=== PATIENT | female | born 1950 | race African-American/Black ===

== ENCOUNTER 2017-09-25 09:51 | Inpatient (IN) | payer OTHER ==
[2017-09-25 10:15] VITALS: BMI 21.7
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
[2017-09-25] MEDS ORDERED: P-EPHED 60MG/TRIPROLIDI 2.5MG TABLET PO PRN (13:00)
[2017-09-25] MEDS ORDERED: MAGNESIUM CITRATE 300 ML BOTTLE PO PRN (13:00)
[2017-09-25] MEDS ORDERED: chlordiazePOXIDE HCL 25 MG CAPSULE PO PRN (13:00)
[2017-09-25] MEDS ORDERED: LOPERAMIDE HCL 2 MG CAPSULE PO PRN (13:00)
[2017-09-25] MEDS ORDERED: MAGNESIUM HYDROX 2400MG/30ML ORAL SUSPENSION 30 ML CUP PO PRN (13:00)
[2017-09-25] MEDS ORDERED: IBUPROFEN 400 MG TABLET (FP) PO PRN (13:00)
[2017-09-25] MEDS ORDERED: MENTHOL/PHENOL 1 EACH UD MM PRN (13:00)
[2017-09-25] MEDS ORDERED: MAG HYDROX/AL HYDROX/SIMETH 30 ML UNIT-DOSE CUP PO PRN (13:00)
[2017-09-25] MEDS ORDERED: chlordiazePOXIDE HCL 25 MG CAPSULE PO ONE (14:30)
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
[2017-09-25] MEDS: ACETAMINOPHEN 325 MG TABLET (FP) PO PRN (16:24)
[2017-09-25] MEDS: chlordiazePOXIDE HCL 25 MG CAPSULE PO SCH ×2 (16:24→22:18)
[2017-09-25] MEDS: NICOTINE 14 MG/24 HOURS TOPICAL PATCH TD SCH (16:32)
[2017-09-25 16:37] LABS: HEMATOCRIT 41.3 % (32.4-45.2); HEMOGLOBIN 13.3 GM/dL (10.7-15.3); MCH 29.2 pg (25.7-33.7); MCHC 32.1 g/dl (32.0-36.0); MEAN CELL VOLUME 90.8 fl (80-96); MEAN PLT VOLUME 8.6 fl (7.5-11.1); PLATELET COUNT 238 K/MM3 (134-434); RBC 4.55 M/mm3 (3.60-5.2); RDW 13.8 % (11.6-15.6); WHITE BLOOD COUNT 7.7 K/mm3 (4.0-10.0)
[2017-09-25 17:12] LABS: CHLORIDE 103 mmol/L (98-107); POTASSIUM 4.3 mmol/L (3.5-5.1); SODIUM 139 mmol/L (136-145)
[2017-09-25 17:39] LABS: ALBUMIN 3.8 g/dl (3.4-5.0); ALK PHOS 130 U/L (45-117); ANION GAP 8 (8-16); BILIRUBIN,TOTAL 0.5 mg/dL (0.2-1.0); BLOOD UREA NITROGEN 10 mg/dL (7-18); CALCIUM 9.1 mg/dL (8.5-10.1); CO2 28 mmol/L (21-32); CREATININE 0.6 mg/dL (0.55-1.02); GLUCOSE,RANDOM 76 mg/dL (74-106); SGOT/AST 22 U/L (15-37); SGPT/ALT 33 U/L (12-78); TOT PROT 8.3 g/dl (6.4-8.2)
[2017-09-25] MEDS: THIAMINE HCL 100 MG TABLET (FP) PO SCH (22:18)
[2017-09-25] MEDS: guaiFENesin/D-METHORPHAN HB 10 ML UNIT-DOSE CUPS PO PRN (22:18)
[2017-09-25] MEDS: ZOLPIDEM TARTRATE 5 MG TABLET PO PRN (22:18)
[2017-09-26] MEDS: chlordiazePOXIDE HCL 25 MG CAPSULE PO SCH ×4 (05:41→22:27)
[2017-09-26] MEDS: ACETAMINOPHEN 325 MG TABLET (FP) PO PRN ×2 (05:42→17:28)
[2017-09-26] MEDS: PRENATAL VITAMINS W/ FOLIC ACID TABLET (FP) PO SCH (10:01)
[2017-09-26] MEDS: NICOTINE 14 MG/24 HOURS TOPICAL PATCH TD SCH (10:01)
[2017-09-26] MEDS: amLODIPine BESYLATE 10 MG TABLET (FP) PO SCH (10:01)
[2017-09-26] MEDS: NICOTINE POLACRILEX 2 MG GUM BUC PRN ×2 (10:03→18:33)
[2017-09-26] MEDS: guaiFENesin/D-METHORPHAN HB 10 ML UNIT-DOSE CUPS PO PRN (14:45)
--- NOTE | 2017-09-26 15:49 | PN ---
S CIWA - CIWA Score Nausea/Vomitin Muscle Tremors: 3 Anxiety: 4-Mod. Anxious/Guarded Agitation: 4-Moderately Restless Paroxysmal Sweats: 2 Orientation: 0-Oriented Tacttile Disturbances: 0-None Auditory Disturbances: 0-None Visual Disturbances: 0-None Headache: 0-None Present CIWA-Ar Total Score: 16 [facility] Progress Note (SOAP) Subjective: sleep disturbance shakes sweats Objective: 09/26/17 15:50 A & O x 3 Vital Signs Temperature 98.4 F 09/26/17 14:55 Pulse Rate 85 09/26/17 14:55 Respiratory Rate 18 09/26/17 14:55 Blood Pressure 113/66 09/26/17 14:55 O2 Sat by Pulse Oximetry (%) Laboratory Last Values WBC 7.7 K/mm3 (4.0-10.0) 09/25/17 13:00 RBC 4.55 M/mm3 (3.60-5.2) 09/25/17 13:00 Hgb 13.3 GM/dL (10.7-15.3) 09/25/17 13:00 Hct 41.3 % (32.4-45.2) 09/25/17 13:00 MCV 90.8 fl (80-96) 09/25/17 13:00 MCH 29.2 pg (25.7-33.7) 09/25/17 13:00 MCHC 32.1 g/dl (32.0-36.0) 09/25/17 13:00 RDW 13.8 % (11.6-15.6) 09/25/17 13:00 Plt Count 238 K/MM3 (134-434) 09/25/17 13:00 MPV 8.6 fl (7.5-11.1) 09/25/17 13:00 Sodium 139 mmol/L (136-145) 09/25/17 13:00 Potassium 4.3 mmol/L (3.5-5.1) 09/25/17 13:00 Chloride 103 mmol/L (98-107) 09/25/17 13:00 Carbon Dioxide 28 mmol/L (21-32) 09/25/17 13:00 Anion Gap 8 (8-16) 09/25/17 13:00 BUN 10 mg/dL (7-18) 09/25/17 13:00 Creatinine 0.6 mg/dL (0.55-1.02) 09/25/17 13:00 Creat Clearance w eGFR > 60 (>60) 09/25/17 13:00 Random Glucose 76 mg/dL (74-106) 09/25/17 13:00 Calcium 9.1 mg/dL (8.5-10.1) 09/25/17 13:00 Total Bilirubin 0.5 mg/dL (0.2-1.0) 09/25/17 13:00 AST 22 U/L (15-37) 09/25/17 13:00 ALT 33 U/L (12-78) 09/25/17 13:00 Alkaline Phosphatase 130 U/L (45-117) H 09/25/17 13:00 Total Protein 8.3 g/dl (6.4-8.2) H 09/25/17 13:00 Albumin 3.8 g/dl (3.4-5.0) 09/25/17 13:00 RPR Titer Nonreactive (NONREACTIVE) 09/25/17 13:00 HIV 1&2 Antibody Screen Negative 09/25/17 11:45 HIV P24 Antigen Negative 09/25/17 11:45 labs noted Assessment: 09/26/17 15:52 withdrawal sx Plan: continue detox
--- NOTE | 2017-09-26 16:01 | EKG ---
Test Reason : Blood Pressure : / mmHG Vent. Rate : 077 BPM Atrial Rate : 077 BPM P-R Int : 140 ms QRS Dur : 078 ms QT Int : 410 ms P-R-T Axes : 057 032 027 degrees QTc Int : 463 ms NORMAL SINUS RHYTHM NORMAL ECG NO PREVIOUS ECGS AVAILABLE Confirmed by CHARLA PINEDO, GUILHERME ([id number]) on 09/26/2017 4:00:48 PM Referred By: Confirmed By:GUILHERME DUNHAM MD
[2017-09-26] MEDS: ZOLPIDEM TARTRATE 5 MG TABLET PO PRN (22:27)
[2017-09-26] MEDS: THIAMINE HCL 100 MG TABLET (FP) PO SCH (22:27)
[2017-09-27] MEDS: chlordiazePOXIDE HCL 25 MG CAPSULE PO SCH ×2 (06:00→10:38)
[2017-09-27] MEDS: ACETAMINOPHEN 325 MG TABLET (FP) PO PRN (06:01)
[2017-09-27 10:14] VITALS: BP 120/72; PULSE 85; TEMP 95
[2017-09-27] MEDS: amLODIPine BESYLATE 10 MG TABLET (FP) PO SCH (10:39)
[2017-09-27] MEDS: PRENATAL VITAMINS W/ FOLIC ACID TABLET (FP) PO SCH (10:39)
[2017-09-27] MEDS: NICOTINE 14 MG/24 HOURS TOPICAL PATCH TD SCH (10:39)
[2017-09-27] MEDS: NICOTINE POLACRILEX 2 MG GUM BUC PRN (10:40)
--- NOTE | 2017-09-27 15:39 | DS ---
[facility] Detox Discharge Summary Admission Date: 09/25/17 Discharge Date: 09/27/17 - History Present History: Alcohol Dependence Additional Comments: patient reports that her and father recently and wants to go home, patient lives along and considers grieving counseling within the local community and nine grandchildren keep her busy during the day - Physical Exam Results Vital Signs: Vital Signs Temperature 95.0 F L 09/27/17 10:14 Pulse Rate 85 09/27/17 10:14 Respiratory Rate 16 09/27/17 10:14 Blood Pressure 120/72 09/27/17 10:14 O2 Sat by Pulse Oximetry (%) Pertinent Admission Physical Exam Findings: withdrawal sx Vital Signs Temperature 95.0 F L 09/27/17 10:14 Pulse Rate 85 09/27/17 10:14 Respiratory Rate 16 09/27/17 10:14 Blood Pressure 120/72 09/27/17 10:14 O2 Sat by Pulse Oximetry (%) Laboratory Last Values WBC 7.7 K/mm3 (4.0-10.0) 09/25/17 13:00 RBC 4.55 M/mm3 (3.60-5.2) 09/25/17 13:00 Hgb 13.3 GM/dL (10.7-15.3) 09/25/17 13:00 Hct 41.3 % (32.4-45.2) 09/25/17 13:00 MCV 90.8 fl (80-96) 09/25/17 13:00 MCH 29.2 pg (25.7-33.7) 09/25/17 13:00 MCHC 32.1 g/dl (32.0-36.0) 09/25/17 13:00 RDW 13.8 % (11.6-15.6) 09/25/17 13:00 Plt Count 238 K/MM3 (134-434) 09/25/17 13:00 MPV 8.6 fl (7.5-11.1) 09/25/17 13:00 Sodium 139 mmol/L (136-145) 09/25/17 13:00 Potassium 4.3 mmol/L (3.5-5.1) 09/25/17 13:00 Chloride 103 mmol/L (98-107) 09/25/17 13:00 Carbon Dioxide 28 mmol/L (21-32) 09/25/17 13:00 Anion Gap 8 (8-16) 09/25/17 13:00 BUN 10 mg/dL (7-18) 09/25/17 13:00 Creatinine 0.6 mg/dL (0.55-1.02) 09/25/17 13:00 Creat Clearance w eGFR > 60 (>60) 09/25/17 13:00 Random Glucose 76 mg/dL (74-106) 09/25/17 13:00 Calcium 9.1 mg/dL (8.5-10.1) 09/25/17 13:00 Total Bilirubin 0.5 mg/dL (0.2-1.0) 09/25/17 13:00 AST 22 U/L (15-37) 09/25/17 13:00 ALT 33 U/L (12-78) 09/25/17 13:00 Alkaline Phosphatase 130 U/L (45-117) H 09/25/17 13:00 Total Protein 8.3 g/dl (6.4-8.2) H 09/25/17 13:00 Albumin 3.8 g/dl (3.4-5.0) 09/25/17 13:00 RPR Titer Nonreactive (NONREACTIVE) 09/25/17 13:00 HIV 1&2 Antibody Screen Negative 09/25/17 11:45 HIV P24 Antigen Negative 09/25/17 11:45 lab noted - Treatment Hospital Course: Detox Protocol Followed, Responded well Patient has Accepted a Rehab Referral to: patient agrees to go to local AA and community support meeting - Medication Discharge Medications: Ambulatory Orders Amlodipine Besylate [Norvasc -] 10 mg PO DAILY #30 tablet 09/27/17 - Diagnosis (1) Alcohol dependence with uncomplicated withdrawal Status: Acute - AMA Did Patient Leave Against Medical Advice: Yes
[2017-09-27] MEDS ORDERED: chlordiazePOXIDE 5 MG CAPSULE PO SCH (17:00)
[2017-09-28] MEDS ORDERED: chlordiazePOXIDE HCL 10 MG CAPSULE PO SCH (17:00)
== END 2017-09-27 11:30 | disposition left against medical advice (07) | DRG 770 ==
LOC: YASAS 09:51 → Y6N 13:14
PROVIDERS: ADMIT Internal Medicine; ATTEND Internal Medicine
PROC: HZ2ZZZZ Detoxification Services for Substance Abuse Treatment (ICD-10-PCS; principal; 2017-09-25)
DX: F10.230 Alcohol dependence with withdrawal, uncomplicated (principal); F14.20 Cocaine dependence, uncomplicated; F17.210 Nicotine dependence, cigarettes, uncomplicated; I10 Essential (primary) hypertension; G47.00 Insomnia, unspecified; K21.9 Gastro-esophageal reflux disease without esophagitis; B18.2 Chronic viral hepatitis C; M54.5 Low back pain; G89.29 Other chronic pain
CPT/HCPCS: 36415; 80053; 85027; 86593; 87389; 93005; 93010